=== PATIENT | female | born 1945 | race Caucasian/White ===

== ENCOUNTER 2017-08-24 10:00 | Emergency (ER) | payer MEDICARE, BC ==
--- NOTE | 2017-08-24 10:37 | ERPHSYRPT ---
- History of Present Illness Time Seen by Provider: 08/24/17 10:32 Source: patient Exam Limitations: no limitations Physician History: 72-year-old white female arrives with complaint of pain in her left thumb since yesterday [place] to have pain on the left thumb located over the thenar eminence also dorsal left thumb dorsally patient states she has pain with movement of her thumb also reduced movement of the left thumb. She denies any obvious injury states pain radiates up her arm. Past medical history includes high blood pressure, asthma, arthritis Past surgical history includes cholecystectomy, temporomandibular joint surgeries, tonsils, bilateral knee replacements. Occurred: yesterday Method of Injury: unknown Quality: constant Extremities Pain Location: hand: left, thumb: left Modifying Factors: Improves With: nothing Associated Symptoms: none Allergies/Adverse Reactions: bacitracin [From Neosporin ([id number])] Allergy (Verified 08/24/17 10:33) moxifloxacin [From Avelox] Allergy (Verified 08/24/17 10:33) neomycin [From Neosporin ([id number])] Allergy (Verified 08/24/17 10:33) polymyxin B [From Neosporin ([id number])] Allergy (Verified 08/24/17 10:33) Sulfa (Sulfonamide Antibiotics) Allergy (Verified 08/24/17 10:33) Home Medications: Amlodipine Besylate 5 mg [Norvasc 5 mg] 5 mg PO DAILY 08/24/17 [History] Bupropion HCl [Wellbutrin Xl] 300 mg PO DAILY 08/24/17 [History] Hydrochlorothiazide 25 mg [hydroDIURIL 25 MG] 25 mg PO DAILY 08/24/17 [ History] Lansoprazole [Prevacid] 30 mg PO DAILY 08/24/17 [History] - Review of Systems Constitutional: No Fever, No Chills Eyes: No Symptoms Ears, Nose, & Throat: No Symptoms Respiratory: No Cough, No Dyspnea Cardiac: No Chest Pain, No Edema, No Syncope Abdominal/Gastrointestinal: No Abdominal Pain, No Nausea, No Vomiting, No Diarrhea Genitourinary Symptoms: No Dysuria Musculoskeletal: Other (left thumb pain) Skin: No Rash Neurological: No Dizziness, No Focal Weakness, No Sensory Changes Psychological: No Symptoms Endocrine: No Symptoms All Other Systems: Reviewed and Negative - Past Medical History Cardiac History: Hypertension Musculoskeletal History: Arthritis - Past Surgical History Gastrointestinal: Cholecystectomy Other Surgical History: tonsillectomy, bilateral temp oral mandibular joints, bilateral knee replacements - Nursing Vital Signs Nursing Vital Signs: Initial Vital Signs Temperature 98.3 F 08/24/17 10:26 Pulse Rate 74 08/24/17 10:26 Respiratory Rate 18 08/24/17 10:26 Blood Pressure 188/74 08/24/17 10:26 O2 Sat by Pulse Oximetry 98 08/24/17 10:26 Pain Scale Pain Intensity 2 - Physical Exam General Appearance: alert Eyes, Ears, Nose, Throat Exam: moist mucous membranes Neck Exam: non-tender, supple Cardiovascular/Respiratory Exam: chest non-tender, normal breath sounds, regular rate/rhythm, no respiratory distress Abdominal Exam: non-tender, No guarding Back Exam: normal inspection, No vertebral tenderness Shoulder Exam: normal inspection, non-tender, no evidence of injury, normal ROM Elbow/Forearm Exam: normal inspection, non-tender, no evidence of injury, normal ROM Wrist Exam: normal inspection, non-tender, no evidence of injury, normal ROM Hand Exam: No normal inspection (left hand tender with palpation over dorsal and volar thumb tender with palpation over left thenar eminence, decreased range of motion left thumb, pain with movement left thumb, good capillary refill all fingers sensation intact to all fingers radial and ulnar pulses intact 2 over 4) Neuro/Tendon Exam: normal sensation, normal motor functions Mental Status Exam: alert, oriented x 3, cooperative Skin Exam: normal color, warm, dry SpO2 Interpretation: normal - Radiology Exams Left Hand X-ray Interpretation: Discussed w/ radiologist (x-ray left hand: Moderate advanced first metacarpal multangular degenerative changes, mild degenerative changes of all IP joints. No other bony, articular, or soft tissue abnormalities) Ordered Tests: Active Orders 24 hr Category Date Time Status HAND (MINIMUM 3 VIEWS) Stat Exams 08/24/17 10:31 Completed - Progress Progress: improved Progress Note: 08/24/17 11:23 72-year-old white female arrives with complaint of pain on her left thumb symptoms since yesterday. Patient has a very slightly raised area on the dorsal thumb at the level of the MCP joint She has pain with palpation dorsal left thumb and volar surface of the left thumb pain over the left thenar eminence. X-ray of the left thumb is remarkable for arthritis. Patient is concerned that she possibly has been bitten by a spider the area is not hot nor is it red however it is mildly raised. Will go ahead and place patient in the left wristlet. Will give patient Medrol Dosepak and place her on keflex Patient lives in [place] Will release patient she is to follow-up with her family doctor. 08/24/17 11:31 - Departure Time of Disposition: 11:25 Departure Disposition: Home Clinical Impression: Left hand pain, Arthritis, rule out insect bite Condition: Fair Critical Care Time: No Additional Instructions: Return home. Cold packs to left thumb and hand 24-48 hours. Keflex 500 mg orally three times a day for 10 days Medrol Dosepak as directed. Follow-up with your family doctor. Return for acute distress or for severe symptoms. Prescriptions: Cephalexin Mh 500 mg [Keflex 500 mg] 500 mg PO TID #30 capsule
--- NOTE | 2017-08-24 11:14 | XRAY ---
Indication: Pain. No known injury. Comparison: None 3 views of the left hand demonstrates moderate/advanced first metacarpal multangular degenerative changes. Mild degenerative changes of all IP joints. No other bony, articular, or soft tissue abnormalities.
[2017-08-24 11:47] VITALS: BP 161/81; PULSE 68; O2SAT 97
== END 2017-08-24 11:49 | disposition home or self-care (01) ==
LOC: ED 10:00
DX: M79.642 Pain in left hand (principal); M19.90 Unspecified osteoarthritis, unspecified site; Z79.899 Other long term (current) drug therapy
CPT/HCPCS: 73130; 99283; 99284; L3908